=== PATIENT | male | born 1995 | race Hispanic/Latino ===

== ENCOUNTER 2019-09-14 20:09 | Emergency (ER) | payer BC, SELFPAY ==
[~2019-09-14 20:09] MED LIST: Iopamidol-370 76% 500 ML 1 ML ONE
[2019-09-14 20:34] LABS: #Basophils 0.1 thou/uL (0.0-0.2); #Eosinphils 0.1 thou/uL (0.0-0.7); #Lymphocytes 2.8 thou/uL (1.20-3.40); #Monocytes 0.4 thou/uL (0.11-0.59); #Neutrophils 5.4 thou/uL (1.40-6.50); %Eosinophils 1.3 % (0.0-10.0); %Lymphocytes 31.7 % (21.0-51.0); %Monocytes 4.9 % (0.0-10.0); %Neutrophils 61.1 % (42.0-75.0); Hemoglobin 18.1 g/dL (14.0-18.0); Mean Corpuscular HGB CONC 35.9 g/dL (32.0-36.0); Mean Corpuscular Hemoglobin 31.9 pg (27.0-31.0); Mean Corpuscular Volume 88.7 fL (78.0-98.0); Mean Platelet Volume 7.9 fL (7.4-10.4); Platelet Count 295 thou/uL (130-400); RBC Distribution Width 11.9 % (11.5-14.5); Red Blood Cell (RBC) Count 5.68 mill/uL (4.70-6.10); White Blood Cell (WBC) Count 8.8 thou/uL (4.8-10.8)
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
[2019-09-14 20:55] LABS: ALT (SGPT) 16 U/L (8-55); AST (SGOT) 16 U/L (5-34); Albumin 4.9 g/dL (3.5-5.0); Alkaline Phosphatase 70 U/L (40-110); Anion Gap 20 mmol/L (10-20); BUN (Urea Nitrogen) 7 mg/dL (8.9-20.6); Bilirubin, Total 0.7 mg/dL (0.2-1.2); Calc. Creatinine Clearance 0 mL/min (70-130); Calcium 9.3 mg/dL (7.8-10.44); Carbon Dioxide 21 mmol/L (22-29); Chloride 102 mmol/L (98-107); Estimated GFR-MDRD 79; Glucose 96 mg/dL (70-105); Potassium 3.6 mmol/L (3.5-5.1); Protein, Total 7.9 g/dL (6.0-8.3); Sodium 139 mmol/L (136-145)
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
[2019-09-14] MEDS ORDERED: Ondansetron PF 4 MG/2 ML Vial ONE (21:01)
[2019-09-14 21:04] LABS: Acetaminophen Less than 6.0 mcg/mL (10.0-30.0); Alcohol Less than 10 mg/dL (Less than 10); Salicylate Less than 8.0 mg/dL (15.0-30.0)
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
[2019-09-14 22:10] LABS: Bilirubin Negative (Negative); Blood, Urine Negative (Negative); Clarity Clear (Clear); Glucose, Urine (Dipstick) Normal (Negative); Leukocyte Negative Leu/uL (Negative); Nitrite Negative (Negative); Protein, Urine (Dipstick) 20 mg/dL (Neg-Trace); Urobilinogen Normal mg/dL (Less than 2)
[2019-09-14 22:25] LABS: Medtox Reader # READER 1
[2019-09-14 22:26] LABS: Amphetamine Not Detected (NotDetected); Barbiturates Screen Not Detected (NotDetected); Benzodiazepine Screen Not Detected (NotDetected); Cocaine Metabolite Screen Detected (NotDetected); Medtox Control Line Valid? VALID (VALID); Methadone Not Detected (NotDetected); Methamphetamine Not Detected (NotDetected); Opiate Screen Not Detected (NotDetected); Oxycodone Screen Not Detected (NotDetected); Phencyclidine (PCP) Not Detected (NotDetected); THC/Cannabinoid Screen Detected (NotDetected); Tricyclic Screen Not Detected (NotDetected)
[2019-09-14] MEDS ORDERED: Morphine 4 MG/ML VIAL ONE (23:02)
[2019-09-14 23:23] LABS: Lactic Acid 1.5 mmol/L (0.5-2.2)
== END 2019-09-14 23:45 ==
LOC: ERS 20:09
DX: T14.8XXA Other injury of unspecified body region, initial encounter (principal); F14.10 Cocaine abuse, uncomplicated; F12.10 Cannabis abuse, uncomplicated; J45.909 Unspecified asthma, uncomplicated; F41.9 Anxiety disorder, unspecified; F31.9 Bipolar disorder, unspecified; F17.200 Nicotine dependence, unspecified, uncomplicated; X50.9XXA Other and unspecified overexertion or strenuous movements or postures, initial encounter
CPT/HCPCS: 36415; 70450; 71260; 72125; 74177; 80053; 80306; 80307; 81003; 83605; 85025; 86850; 86900; 86901; 93005; 96361; 96374; 96375; J2270; J2405; L0120; Q9967

== ENCOUNTER 2023-05-13 04:00 | Emergency (ER) | payer SELFPAY | END 2023-05-13 04:28 | disposition home or self-care (01) | LOC: ERS 04:00 | DX: L02.415 Cutaneous abscess of right lower limb (principal); F17.210 Nicotine dependence, cigarettes, uncomplicated | CPT/HCPCS: 99282 ==

== ENCOUNTER 2023-07-08 02:29 | Emergency (ER) | payer SELFPAY ==
[2023-07-08] MEDS ORDERED: Ibuprofen 200 MG TAB ONE (03:16)
== END 2023-07-08 06:15 | disposition home or self-care (01) ==
LOC: ERS 02:29
DX: S81.801D Unspecified open wound, right lower leg, subsequent encounter (principal); M25.511 Pain in right shoulder; L03.116 Cellulitis of left lower limb; F17.210 Nicotine dependence, cigarettes, uncomplicated; W18.30XD Fall on same level, unspecified, subsequent encounter

== ENCOUNTER 2024-08-08 09:25 | Emergency (ER) | payer SELFPAY | END 2024-08-08 10:46 | disposition home or self-care (01) | LOC: ERS 09:25 | DX: K04.7 Periapical abscess without sinus (principal); F17.210 Nicotine dependence, cigarettes, uncomplicated | CPT/HCPCS: 99282 ==